=== PATIENT | male | born 1995 ===

== ENCOUNTER 2021-06-06 15:33 | Emergency (ER) | payer BC ==
[2021-06-06 16:18] VITALS: BP 114/65
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
[2021-06-06] MEDS ORDERED: TETANUS,DIPH,PERTUSS(ACELL) VACCINE 0.5 ML SYRINGE IM ONE (21:06)
--- NOTE | 2021-06-06 21:12 | Emergency Department Report ---
ED Laceration HPI - HPI Chief Complaint: Extremity Injury, Upper Stated Complaint: RT HAND CUT Time Seen by Provider: 06/06/21 21:05 Occurred When: Today Location: Upper Extremity Severity: moderate Tetanus Status: Not up to Date Laceration Symptoms: Yes Pain, No Numbness, No Weakness Other History: Presents emerge department complaining of a puncture style laceration to the left hand that was accidental pain with ED Review of Systems ROS: Stated complaint: RT HAND CUT Other details as noted in HPI Comment: All other systems reviewed and negative ED Past Medical Hx - Past Medical History Previous Medical History?: No - Surgical History Past Surgical History?: No Laceration Physical Exam - Exam General: Vital signs noted. No distress. Alert and acting appropriately. Wound Length (cm): 1 Laceration Location: Upper Extremity Laceration Exam: Yes Normal Distal CMS, No Foreign Body, No Exposed Tendon, Vessel, or Nerve, No Tendon Injury ED Course Vital Signs 06/06/21 16:13 Temperature 97.9 F Pulse Rate 69 Respiratory 18 Rate Blood Pressure 114/65 O2 Sat by Pulse 98 Oximetry - Laceration /Wound Repair Left Hand Wound Location: upper extremity Wound Length (cm): 1 Wound's Depth, Shape: linear Wound Explored: clean Betadine Prep?: Yes Anesthesia: 1% Lidocaine Wound Debrided: moderate Wound Repaired With: sutures Suture Size/Type: 4:0 Number of Sutures: 1 Layer Closure?: No Sterile Dressing Applied?: Yes Critical care attestation.: If time is entered above; I have spent that time in minutes in the direct care of this critically ill patient, excluding procedure time. ED Disposition Clinical Impression: Hand laceration, Tetanus toxoid inoculation Disposition: 01 HOME / SELF CARE / HOMELESS Is pt being admited?: No Does the pt Need Aspirin: No Condition: Stable Instructions: Laceration Care, Adult, VIS, Tetanus, Diphtheria (Td); Tetanus, Diphtheria, Pertussis (Tdap) - CDC Additional Instructions: Keep wound clean with antibacterial soap and water Referrals: MARY JO RODRIGES MD [Primary Care Provider] - 3-5 Days
== END 2021-06-06 21:53 | disposition home or self-care (01) ==
LOC: ED 15:33
DX: S61.412A Laceration without foreign body of left hand, initial encounter (principal); Z23 Encounter for immunization; X58.XXXA Exposure to other specified factors, initial encounter; Y93.89 Activity, other specified; Y92.89 Other specified places as the place of occurrence of the external cause; Y99.8 Other external cause status
CPT/HCPCS: 90471; 90715; 99283